=== PATIENT | male | born 1955 | race Two or more races ===

== ENCOUNTER 2025-01-30 16:29 | Outpatient (REF) | payer OTHER, MEDICARE, SELFPAY ==
--- OUTSIDE RECORDS SUMMARY | 2025-01-30 18:21 | XMS_ITS | Clinical Summary ---
Author Organization [address] Building Address [address] [place] [address] Phone Care Team Providers Care Hydro Mechanic Name Role Phone Chilo Sanchez MD Primary Care Provider [phone] Allergies No known active allergies Medications aspirin 81 mg EC tablet Take 81 mg by mouth daily. Active clotrimazole-b etamethasone (LOTRISONE) 1-0.05 % cream Apply to affected area twice a day 3 Active Farxiga 10 mg tablet Take 10 mg by mouth daily 4 Active FREESTYLE LANCETS MISC 1 Device by Does not apply route every morning (before breakfast). 3 Active blood-glucose meter kit 1 Each by Does not apply route as needed for Other. 4 Active blood sugar diagnostic (FreeStyle Lite Strips) test strip USE TO TEST BLOOD SUGAR EVERY MORNING BEFORE BREAKFAST. Dx Code E11.22 3 Active cabergoline (DOSTINEX) 0.5 mg tabletIndicati ons:Type 2 diabetes mellitus with diabetic chronic kidney disease (CMS/HCC V24, CMS/HCC V28) TAKE 1/2 OF A TABLET BY MOUTH TWICE A WEEK 12 tablet 1 5 Active metFORMIN XR (GLUCOPHAGE-XR ) 500 mg 24 hr tabletIndicati ons:Type 2 diabetes mellitus with diabetic chronic kidney disease ([facility] V24, [facility] V28) TAKE 1 TABLET BY MOUTH TWICE A DAY WITH FOOD 180 tablet 5 Active atorvastatin (LIPITOR) 20 mg tablet TAKE 1 TABLET BY MOUTH EVERY DAY 90 tablet 5 Active lisinopriL (PRINIVIL,ZEST RIL) 10 mg tablet TAKE 1 TABLET BY MOUTH EVERY DAY 90 tablet 5 Active lisinopriL (PRINIVIL,ZEST RIL) 10 mg tablet TAKE 1 TABLET BY MOUTH EVERY DAY 90 tablet 5 025 Discontinued atorvastatin (LIPITOR) 20 mg tablet TAKE 1 TABLET BY MOUTH EVERY DAY 90 tablet 5 025 Discontinued Active Problems Problem Noted Date Diagnosed Date Morbid obesity with BMI of 4 0.0-44.9, adult ([facility] V24, [facility] V28) 07/25/2024 Malignant neoplasm of right kidney ([facility] V24, [facility] V28) 12/29/2022 Lumbar disc disease 05/25/2022 Overview (07/25/2024): Last Assessment & Plan: Patient is 3 weeks s/p right L4-5 decompression and foraminal discectomy. He states his right leg pain is much improved, he has mild residual tingling a few times a day in the right foot, or when lying down sleeping. He states he can lay on his left or right side but not on his belly because is too uncomfortable with the tingling. He notes that he is walking and sleeping better. He denies any wound drainage, fever, sweats chills. He is not requiring any pain meds, including [id number] NSAIDs or Tylenol. Patient is doing well postop, likely will continue to note improvements with time. I asked him to follow-up in 6 weeks if he has any residual symptoms at that time. All postop questions answered. I had reviewed his preop lumbar MRI report, there was mention of incidentally noted 4.9 cm soft tissue lesion arising from the lateral aspect of the right kidney, only seen on localizer sequence. They stated its not representing a simple cyst, recommended CT of the abdomen and pelvis for further evaluation. I let patient know of this finding, will order the CAT scan, but advised them to see the primary care for follow-up of this CT scan results. They will call the PCP this week, I gave him copies of his office note, MRI report, op note to drop off at the PCP office. They will call with any concerns or questions. Gastroesophageal reflux disease 06/03/2021 Monoclonal gammopathy 12/14/2019 Overview (07/25/2024): Referred to Heme 12/05 & / Proteinuria 05/21/2019 Venous insufficiency of both lower extremities 1 11/29/2017 Primary insomnia 04/25/2018 Overview (07/25/2024): 08/2018 Home Sleep Study did not reveal sleep apnea. Microprolactinoma ([facility] V24, [facility] V28) Tubular adenoma of colon 05/10/2014 Overview (07/25/2024): Western mass gastro 01/2014 Type 2 diabetes mellitus wit h renal manifestations ([facility] V24, [facility] V28) 12/13/2012 Fatty liver disease, nonalcoholic 12/04/2012 Overview (07/25/2024): Questionable finding on abdominal ultrasound 07/2012. Normal LFTs Prolactin increased 09/25/2010 HTN (hypertension) 09/24/2010 Hyperlipidemia 09/24/2010 Encounters Date Type Department Care Team Description 01/11/2025 Telephone Internal Medicine - [facility] [address] [place] [address] Joanna Colon, RN Medicare Annual Wellness Visit Subsequent 11/28/2024 5:15 PM EST Office Visit [facility] - [place] [address] [place] [address] Marium Worthington NP Excessive cerumen in left ear canal (Primary Dx) 11/15/2024 2:00 PM EST Consult [facility] for [facility] - [place] [address] [place] [address] Adilene Pool MD Cognitive change (Primary Dx); Tremor; Atrophy of cerebral cortex (CMS/HCC V24) from Last 3 Months Immunizations Name Administration Dates Next Due Influenza trivalent, 0.5mL ( Fluzone High-dose) 65yo and older 08/25/2022,08/09/2019,08/09/2018 Influenza trivalent, with pr eservative (Fluzone; Afluria) 6mo and older 08/08/2020 Dianxin SARS-CoV-2 COVID-19, mRNA, LNP-S, preservative free 10/18/2022,02/09/2021,01/19/2021 Pneumococcal polysaccharide 23 valent (Pneumovax 23) 2yo and older 08/09/2018 Tdap Tetanus diptheria acell ular pertussis (Boostrix; Adacel) 7yo and older 02/06/2013 Surgical History Surgery Date Site/Laterality Comments COLONOSCOPY 01/15/2009 PROCEDURE: COLOREC CANC SCRN,COLONOSCPY HI RISK; COMMENT: Dr Hardin for hx of polyps. Neg in 09, rpt in 5 yrs OTHER SURGICAL HISTORY 06/09/2022 PROCEDURE: AR HERNANDEZ FACETECTOMY & FORAMOTOMY 1 VRT SGM LUMBAR; COMMENT: Right L4-5 decompression and foraminal discectomy, Dr. Leon NEPHRECTOMY 12/16/2022 Right PROCEDURE: HISTORICAL NEPHRECTOMY; COMMENT: Dr. Oliveros Medical History Medical History Date Comments Tubular adenoma of colon 05/10/2014 DX:Tubu lar adenoma of colon; COMMENT: Western mass gastro 01/2014 Prolactin increased 09/25/2010 DX:Prolactin increased Primary insomnia 04/25/2018 DX:Primary inso mnia; COMMENT: 08/2018 Home Sleep Study did not reveal sleep apnea. Proteinuria 05/21/2019 DX:Proteinuria Type 2 diabetes mellitus wit h renal manifestations (CMS/HCC V24, CMS/HCC V28) 12/13/2012 DX: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) Venous insufficiency of both lower extremities 09/28/2018 DX:Venous insufficiency of b oth lower extremities Fatty liver disease, nonalcoholic 12/04/2012 DX:Fatty liver disease, nonalcoholic; COMMENT: Questionable finding on abdominal ultrasound 07/2012. Normal LFTs HTN (hypertension) 09/24/2010 DX:HTN (hyper tension) Hyperlipidemia 09/24/2010 DX:Hyperlipidemi a Microprolactinoma (CMS/HCC V 24, [facility] V28) 12/14/2017 DX:Microprolactinoma (HCC) Morbid obesity with BMI of 4 0.0-44.9, adult ([facility] V24, [facility] V28) 05/21/2019 DX:Morbid obesity wit h BMI of 40.0-44.9, adult ([facility]) Monoclonal gammopathy 12/14/2019 DX:Monoclo nal gammopathy Gastroesophageal reflux disease 06/03/2021 DX:Gastroesophageal reflux disease Family History Medical History Relation Name Comments Diabetes Brother Cataracts Father No Known Problems Mother No Known Problems Son x2 Blindness Neg Hx Glaucoma Neg Hx Macular degeneration Neg Hx Strabismus Neg Hx Relation Name Status Comments Brother Alive Father Alive Mother Son x2 Alive Social History Tobacco Use Types Packs/Day Years Used Date Smoking Tobacco: Never Smokeless Tobacco: Never Tobacco Cessation:Counseling Given: Not Answered Alcohol Use Standard Drinks/Week Comments No 0 (1 standard drink = 0.6 oz pur e alcohol) Sex and Gender Information Value Date Recorded Sex Assigned at Not on file Legal Sex Male 8:21 AM EST Gender Identity Not on file Sexual Orientation Not on file Obstetrics History Last Filed Vital Signs Vital Sign Reading Time Taken Comments Blood Pressure 123/71 11/28/2024 5:31 PM EST Pulse 59 11/28/2024 5:31 PM EST Temperature 36.7 ??C (98 ??F) 11/28/2024 5:31 PM EST Respiratory Rate - - Oxygen Saturation 98% 11/28/2024 5:31 PM EST Inhaled Oxygen Concentration - - Weight 103 kg (227 lb) 11/15/2024 2:08 PM EST Height 167.6 cm (5' 6 ) 11/15/2024 2:08 PM EST Body Mass Index 36.64 11/15/2024 2:08 PM EST Plan of Treatment Upcoming Encounters Date Type Department Care Team (Late st Contact Info) Description 02/27/2025 1:15 PM EDT Office Visit Internal Medicine - [address] [phone] Chilo Sanchez MD [address] [place] [id number] 04/29/2025 10:00 AM EDT Office Visit [facility] [address] [facility] [address] [place] [address] Adilene Pool MD [address] [place] [address] Health Maintenance Due Date Last Done Comments Diabetes: Annual Foot Exam 1965 Diabetes: Annual Retina Eye Exam 1965 Hepatitis A Vaccines (1 of 2 - Risk 2-dose series) 1972 Zoster Vaccines (1 of 2) 1972 Hepatitis B Vaccines (1 of 3 - Risk 3-dose series) 2013 RSV Immunization Adult Patients (1 - Risk 60-74 years 1-dose series) 2013 Pneumococcal Vaccine: 50+ Years (2 of 2 - PCV) 08/09/2019 08/09/2018 Depression Screening 09/19/2022 Falls Risk Assessment 09/19/2022 Social Influencers of Health Screening 09/19/2022 DTaP,Tdap,and Td Vaccines (2 - Td or Tdap) 02/06/2023 02/06/2013 Diabetes: Blood Sugar Control Test (HGBA1C) 03/22/2024 09/21/2023 COVID-19 Vaccine ( season) 2024 10/18/2022, 02/17/2022, 08/13/2021, Additional history exists Medicare Annual Wellness Visit 07/22/2024 07/22/2023 Influenza Vaccine (Season Ended) 2025 08/25/2022, 12/01/2021, 08/08/2020, Additional history exists Diabetes: Annual Urine Albumin-Creatinine Ratio (uACR) 01/10/2026 01/10/2025, 01/10/2025, 09/21/2023 Diabetes: Annual GFR (Glomerular Filtration Rate) 01/10/2026 01/10/2025, 11/15/2024, 09/05/2024, Additional history exists Hypertension/CHF/CAD Annual BMP Blood Test 01/10/2026 01/10/2025, 11/15/2024, 09/05/2024, Additional history exists Colorectal Cancer Screening: Colonoscopy 01/06/2027 01/06/2022 Cholesterol Screening (Lipid Panel) 09/05/2029 09/05/2024, 10/20/2023 Hepatitis C Screening Completed 02/06/2013 HIB Vaccines Aged Out No longer eligi ble based on patient's age to complete this topic HPV Vaccines Aged Out No longer eligi ble based on patient's age to complete this topic IPV Vaccines Aged Out No longer eligi ble based on patient's age to complete this topic MMR Vaccines Aged Out No longer eligi ble based on patient's age to complete this topic Meningococcal ACWY Vaccine Aged Out N o longer eligible based on patient's age to complete this topic Meningococcal B Vaccine Aged Out No l onger eligible based on patient's age to complete this topic RSV Immunization Patients Under 20 months Aged Out No longer eligible based on patient's age to complete this topic Varicella Vaccines Aged Out No longer eligible based on patient's age to complete this topic Procedures Procedure Name Priority Date/Time Associated Diagnosis Comments GOLDEN URINE CULTURE TUBE Routine 01/10/2025 9:10 AM EDT Chronic kidney disease (CKD) stage G3b/A1, moderately decreased glomerular filtration rate (GFR) between 30-44 mL/min/1.73 square meter and albuminuria creatinine ratio les* (CMS/HCC V24, CMS/HCC V28) Persistent proteinuria Hypertension, unspecified type Fatty liver disease, nonalcoholic Hyperlipidemia, unspecified hyperlipidemia type Vitamin D deficiency Gastroesophageal reflux disease, unspecified whether esophagitis present Malignant neoplasm of right kidney (CMS/HCC V24, CMS/HCC V28) Proteinuria, unspecified type URINALYSIS WITH REFLEX MICROSCOPIC AND CULTURE Routine 01/10/2025 9:10 AM EDT Chronic kidney disease (CKD) stage G3b/A1, moderately decreased glomerular filtration rate (GFR) between 30-44 mL/min/1.73 square meter and albuminuria creatinine ratio les* (CMS/HCC V24, CMS/HCC V28) Persistent proteinuria Hypertension, unspecified type Fatty liver disease, nonalcoholic Hyperlipidemia, unspecified hyperlipidemia type Vitamin D deficiency Gastroesophageal reflux disease, unspecified whether esophagitis present Malignant neoplasm of right kidney (CMS/HCC V24, CMS/HCC V28) Proteinuria, unspecified type URINALYSIS WITH REFLEX MICROSCOPIC AND CULTURE Routine 01/10/2025 9:10 AM EDT Chronic kidney disease (CKD) stage G3b/A1, moderately decreased glomerular filtration rate (GFR) between 30-44 mL/min/1.73 square meter and albuminuria creatinine ratio les* (CMS/HCC V24, CMS/HCC V28) Persistent proteinuria Hypertension, unspecified type Fatty liver disease, nonalcoholic Hyperlipidemia, unspecified hyperlipidemia type Vitamin D deficiency Gastroesophageal reflux disease, unspecified whether esophagitis present Malignant neoplasm of right kidney (CMS/HCC V24, CMS/HCC V28) Proteinuria, unspecified type MICROALBUMIN CREATININE URINE RATIO Routine 01/10/2025 9:10 AM EDT Chronic kidney disease (CKD) stage G3b/A1, moderately decreased glomerular filtration rate (GFR) between 30-44 mL/min/1.73 square meter and albuminuria creatinine ratio les* ([facility]/HCC V24, CMS/HCC V28) Persistent proteinuria Hypertension, unspecified type Fatty liver disease, nonalcoholic Hyperlipidemia, unspecified hyperlipidemia type Vitamin D deficiency Gastroesophageal reflux disease, unspecified whether esophagitis present Malignant neoplasm of right kidney (CMS/HCC V24, CMS/HCC V28) Proteinuria, unspecified type PROTEIN AND CREATININE WITH RATIO, URINE Routine 01/10/2025 9:10 AM EDT Chronic kidney disease (CKD) stage G3b/A1, moderately decreased glomerular filtration rate (GFR) between 30-44 mL/min/1.73 square meter and albuminuria creatinine ratio les* ([facility]/HCC V24, CMS/HCC V28) Persistent proteinuria Hypertension, unspecified type Fatty liver disease, nonalcoholic Hyperlipidemia, unspecified hyperlipidemia type Vitamin D deficiency Gastroesophageal reflux disease, unspecified whether esophagitis present Malignant neoplasm of right kidney (CMS/HCC V24, CMS/HCC V28) Proteinuria, unspecified type PARATHYROID HORMONE INTACT Routine 01/10/2025 8:56 AM EDT Chronic kidney disease (CKD) stage G3b/A1, moderately decreased glomerular filtration rate (GFR) between 30-44 mL/min/1.73 square meter and albuminuria creatinine ratio les* ([facility]/HCC V24, CMS/HCC V28) Persistent proteinuria Hypertension, unspecified type Fatty liver disease, nonalcoholic Hyperlipidemia, unspecified hyperlipidemia type Vitamin D deficiency Gastroesophageal reflux disease, unspecified whether esophagitis present Malignant neoplasm of right kidney (CMS/HCC V24, CMS/HCC V28) Proteinuria, unspecified type RENAL FUNCTION PANEL Routine 01/10/2025 8:56 AM EDT Chronic kidney disease (CKD) stage G3b/A1, moderately decreased glomerular filtration rate (GFR) between 30-44 mL/min/1.73 square meter and albuminuria creatinine ratio les* (CMS/HCC V24, CMS/HCC V28) Persistent proteinuria Hypertension, unspecified type Fatty liver disease, nonalcoholic Hyperlipidemia, unspecified hyperlipidemia type Vitamin D deficiency Gastroesophageal reflux disease, unspecified whether esophagitis present Malignant neoplasm of right kidney (CMS/HCC V24, CMS/HCC V28) Proteinuria, unspecified type VITAMIN D 25 HYDROXY Routine 01/10/2025 8:56 AM EDT Chronic kidney disease (CKD) stage G3b/A1, moderately decreased glomerular filtration rate (GFR) between 30-44 mL/min/1.73 square meter and albuminuria creatinine ratio les* (CMS/HCC V24, CMS/HCC V28) Persistent proteinuria Hypertension, unspecified type Fatty liver disease, nonalcoholic Hyperlipidemia, unspecified hyperlipidemia type Vitamin D deficiency Gastroesophageal reflux disease, unspecified whether esophagitis present Malignant neoplasm of right kidney (CMS/HCC V24, CMS/HCC V28) Proteinuria, unspecified type COMPLETE BLOOD COUNT Routine 01/10/2025 8:56 AM EDT Chronic kidney disease (CKD) stage G3b/A1, moderately decreased glomerular filtration rate (GFR) between 30-44 mL/min/1.73 square meter and albuminuria creatinine ratio les* (CMS/HCC V24, CMS/HCC V28) Persistent proteinuria Hypertension, unspecified type Fatty liver disease, nonalcoholic Hyperlipidemia, unspecified hyperlipidemia type Vitamin D deficiency Gastroesophageal reflux disease, unspecified whether esophagitis present Malignant neoplasm of right kidney (CMS/HCC V24, CMS/HCC V28) Proteinuria, unspecified type MAGNESIUM Routine 01/10/2025 8:56 AM EDT Chronic kidney disease (CKD) stage G3b/A1, moderately decreased glomerular filtration rate (GFR) between 30-44 mL/min/1.73 square meter and albuminuria creatinine ratio les* (CMS/HCC V24, CMS/HCC V28) Persistent proteinuria Hypertension, unspecified type Fatty liver disease, nonalcoholic Hyperlipidemia, unspecified hyperlipidemia type Vitamin D deficiency Gastroesophageal reflux disease, unspecified whether esophagitis present Malignant neoplasm of right kidney (CMS/HCC V24, CMS/HCC V28) Proteinuria, unspecified type CBC WITH AUTO DIFFERENTIAL Routine 11/15/2024 3:26 PM EST Cognitive change Tremor Atrophy of cerebral cortex (CMS/HCC V24) CREATININE, SERUM Routine 11/15/2024 3:2 6 PM EST Cognitive change Tremor Atrophy of cerebral cortex (CMS/HCC V24) BUN Routine 11/15/2024 3:26 PM EST Cognitive change Tremor Atrophy of cerebral cortex (CMS/HCC V24) HEPATIC FUNCTION PANEL Routine 11/15/2024 3:26 PM EST Cognitive change Tremor Atrophy of cerebral cortex (CMS/HCC V24) TREPONEMA PALLIDUM ANTIBODY WITH REFLEX TO RPR AND PARTICLE AGGLUTINATION Routine 11/15/2024 3:26 PM EST Cognitive change Tremor Atrophy of cerebral cortex (CMS/HCC V24) THYROID STIMULATING HORMONE WITH REFLEX TO FREE T4 AND FREE T3 Routine 11/15/2024 3:26 PM EST Cognitive change Tremor Atrophy of cerebral cortex (CMS/HCC V24) VITAMIN B12 Routine 11/15/2024 3:26 PM EST Cognitive change Tremor Atrophy of cerebral cortex (CMS/HCC V24) CBC AND DIFFERENTIAL Routine 11/15/2024 3:26 PM EST Cognitive change Tremor Atrophy of cerebral cortex (CMS/HCC V24) EXTERNAL CT REPORT 11/14/2024 LIPID PANEL WITH REFLEX TO DIRECT LDL Routine 09/05/2024 8:40 AM EST Primary hypertension HEMOGLOBIN A1C Routine 09/21/2023 HM COLONOSCOPY Routine 01/06/2022 HEPATITIS C SCREENING Routine 02/06/2013 from Last 3 Months or Most Recently Relevant to Health Maintenance Results * (ABNORMAL) Urinalysis with reflex microscopic and culture (01/10/2025 9:10 AM EDT) Specific [place] Urine 1.021 1.003 - 1.030 LAB URINALYSIS - AUTOMATED METHOD 01/10/2025 12:[address] [facility] pH, Urine 5.5 5.0 - 8.0 pH LAB URINALYSIS - AUTOMATED METHOD 01/10/2025 12:[address] [facility] Leukocytes, Urine Negative Negative LAB URINALYSIS - AUTOMATED METHOD 01/10/2025 12:[address] [facility] Nitrite, Urine Negative Negative LAB URINALYSIS - AUTOMATED METHOD 01/10/2025 12:[address] [facility] Protein, Urine 30(A) <=Trace mg/dL LAB URINALYSIS - AUTOMATED METHOD 01/10/2025 12:[address] [facility] Glucose, Urine >=1000(A) Negative mg/dL LAB URINALYSIS - AUTOMATED METHOD 01/10/2025 12:[address] [facility] Ketones, Urine Negative Negative mg/dL LAB URINALYSIS - AUTOMATED METHOD 01/10/2025 12:[address] [facility] Urobilinogen , Urine 0.2 0.2 - 1.0 mg/dL LAB URINALYSIS - AUTOMATED METHOD 01/10/2025 12:[address] [facility] Bilirubin, Urine Negative Negative LAB URINALYSIS - AUTOMATED METHOD 01/10/2025 12:[address] [facility] Blood, Urine Negative Negative LAB URINALYSIS - AUTOMATED METHOD 01/10/2025 12:[address] [facility] RBC, Urine 0.5 0 - 4 /HPF LAB URINALYSIS - AUTOMATED METHOD 01/10/2025 12:40 PM EDT [facility] WBC, Urine 0.4 0 - 4 /HPF LAB URINALYSIS - AUTOMATED METHOD 01/10/2025 12:40 PM EDT [facility] Squamous Epithelial, Urine 4 0 - 60 /LPF LAB URINALYSIS - AUTOMATED METHOD 01/10/2025 12:40 PM EDT [facility] Bacteria, Urine Negative Negative /HPF LAB URINALYSIS - AUTOMATED METHOD 01/10/2025 12:40 PM EDT [facility] Hyaline Casts, Urine 0.0 0 - 3 /LPF LAB URINALYSIS - AUTOMATED METHOD 01/10/2025 12:40 PM EDT [facility] Urine Urine specimen obtained by clean catch procedure / Unknown Non-blood Collection / Unknown 01/10/2025 9:10 AM EDT 01/10/2025 9:10 AM EDT us Enrike Lund MD LAB URINE ORDERABLES Final Re sult Performing Organization Address City/[facility]/ZIP Co de Phone Number [facility] [address] [place] [address], [place] [phone] * Golden urine culture tube (01/10/2025 9:10 AM EDT) Extra Tube Hold for add-ons. 01/10/2025 12:01 PM EDT [facility] Comment:Auto resulted. Urine Urine specimen obtained by clean catch procedure / Unknown Non-blood Collection / Unknown 01/10/2025 9:10 AM EDT 01/10/2025 9:10 AM EDT us Enrike Lund MD LAB URINE ORDERABLES Final Re sult [facility] [address] [place] [address], [place] [phone] * (ABNORMAL) Protein and creatinine with ratio, urine (01/10/2025 9:10 AM EDT) Protein, Urine 41 mg/dL LAB CHEMISTRY METHOD 01/10/2025 2:56 PM EDT [facility] Prot/Creat, Ur 0.45(H) <=0.20 mg/mg creat LAB CHEMISTRY METHOD 01/10/2025 2:56 PM EDT [facility] Creatinine, Urine 91.0 mg/dL LAB CHEMISTRY METHOD 01/10/2025 2:56 PM EDT [facility] Urine Urine specimen obtained by clean catch procedure / Unknown Non-blood Collection / Unknown 01/10/2025 9:10 AM EDT 01/10/2025 9:10 AM EDT Enrike Lund MD LAB URINE ORDERABLES Final Re sult [facility] [address] [place] [address], * (ABNORMAL) Microalbumin creatinine urine ratio (01/10/2025 9:10 AM EDT) Creatinine, Urine 91.0 mg/dL LAB CHEMISTRY METHOD 01/10/2025 3:08 PM EDT [facility] Microalb, Ur 206.0(H) 0.0 - 29.0 mg/L LAB CHEMISTRY METHOD 01/10/2025 3:08 PM EDT [facility] Microalb/Crea t Ratio 226(H) <30 mg/g creat LAB CHEMISTRY METHOD 01/10/2025 3:08 PM EDT [facility] Urine Urine specimen obtained by clean catch procedure / Unknown Non-blood Collection / Unknown 01/10/2025 9:10 AM EDT 01/10/2025 9:10 AM EDT us Enrike Lund MD LAB URINE ORDERABLES Final Re sult Performing Organization Address City/[facility]/ZIP Co de Phone Number [facility] [address] [place] [address], [place] [phone] * (ABNORMAL) Vitamin D 25 hydroxy (01/10/2025 8:56 AM EDT) [facility] Vit D, 25-Hydroxy 26.8(L) 30.0 - 80.0 ng/mL LAB CHEMISTRY METHOD 01/10/2025 2:17 PM EDT [facility] Blood Venous blood specimen / Unknown Venipuncture / Unknown 01/10/2025 8:56 AM EDT 01/10/2025 9:05 AM EDT us Enrike Lund MD LAB BLOOD ORDERABLES Final Re sult Performing Organization Address City/[facility]/ZIP Co de Phone Number [facility] [address] [place] [address], [place] [phone] * Complete blood count (01/10/2025 8:56 AM EDT) [facility] WBC 6.0 4.8 - 10.8 K/mcL LAB HEMETOLOGY METHOD 01/10/2025 12:33 PM EDT [facility] RBC 5.40 4.50 - 5.50 M/mcL LAB HEMETOLOGY METHOD 01/10/2025 12:33 PM EDT [facility] Hemoglobin 15.4 13.5 - 17.5 g/dL LAB HEMETOLOGY METHOD 01/10/2025 12:33 PM EDT [facility] Hematocrit 47.3 42.0 - 54.0 % LAB HEMETOLOGY METHOD 01/10/2025 12:33 PM EDT [facility] MCV 87.6 79.0 - 98.0 FL LAB HEMETOLOGY METHOD 01/10/2025 12:33 PM EDT [facility] MCH 28.5 27.0 - 32.0 pcg LAB HEMETOLOGY METHOD 01/10/2025 12:33 PM EDT [facility] [facility] MCHC 32.6 32.0 - 37.0 g/dL LAB HEMETOLOGY METHOD 01/10/2025 12:33 PM EDT [facility] RDW 13.2 11.0 - 15.0 % LAB HEMETOLOGY METHOD 01/10/2025 12:33 PM EDT [facility] Platelets 207 130 - 400 K/mcL LAB HEMETOLOGY METHOD 01/10/2025 12:33 PM EDT [facility] MPV 9.6 7.0 - 11.0 FL LAB HEMETOLOGY METHOD 01/10/2025 12:33 PM EDT [facility] NRBC 0.0 <1.0 % LAB HEMETOLOGY METHOD 01/10/2025 12:33 PM EDT [facility] NRBC Absolute 0.00 <0.10 K/mcL LAB HEMETOLOGY METHOD 01/10/2025 12:33 PM EDT [facility] Blood Venous blood specimen / Unknown Venipuncture / Unknown 01/10/2025 8:56 AM EDT 01/10/2025 9:05 AM EDT us Enrike Lund MD LAB BLOOD ORDERABLES Final Re sult [facility] [address] [place] [address], * Parathyroid hormone intact (01/10/2025 8:56 AM EDT) PTH 63.5 18.5 - 88.0 pcg/mL LAB CHEMISTRY METHOD 01/10/2025 2:18 PM EDT [facility] Blood Venous blood specimen / Unknown Venipuncture / Unknown 01/10/2025 8:56 AM EDT 01/10/2025 9:05 AM EDT Enrike Lund MD LAB BLOOD ORDERABLES Final Re sult Performing Organization Address [facility]/ZIP Co de Phone Number [facility] [address] [place] [address], [place] [phone] * Magnesium (01/10/2025 8:56 AM EDT) [facility] Magnesium 2.0 1.9 - 2.6 mg/dL LAB CHEMISTRY METHOD 01/10/2025 1:13 PM EDT [facility] Blood Venous blood specimen / Unknown Venipuncture / Unknown 01/10/2025 8:56 AM EDT 01/10/2025 9:05 AM EDT Enrike Lund MD LAB BLOOD ORDERABLES Final Re sult Performing Organization Address City/[facility]/ZIP Co de Phone Number [facility] [address] [place] [address], [place] [phone] * (ABNORMAL) Renal function panel (01/10/2025 8:56 AM EDT) [facility] Sodium 139 133 - 145 mmol/L LAB CHEMISTRY METHOD 01/10/2025 1:13 PM EDT [facility] Potassium 4.4 3.5 - 5.5 mmol/L LAB CHEMISTRY METHOD 01/10/2025 1:13 PM EDT [facility] Chloride 106 96 - 110 mmol/L LAB CHEMISTRY METHOD 01/10/2025 1:13 PM EDT [facility] CO2 27 21 - 32 mmol/L LAB CHEMISTRY METHOD 01/10/2025 1:13 PM EDT [facility] Anion Gap 6 3 - 11 LAB CHEMISTRY METHOD 01/10/2025 1:13 PM EDT [facility] Glucose 121(H) 70 - 100 mg/dL LAB CHEMISTRY METHOD 01/10/2025 1:13 PM EDT [facility] BUN 24 5 - 25 mg/dL LAB CHEMISTRY METHOD 01/10/2025 1:13 PM EDT [facility] Creatinine 1.68(H) 0.70 - 1.30 mg/dL LAB CHEMISTRY METHOD 01/10/2025 1:13 PM EDT [facility] eGFR 43(L) >=60 mL/min/1. 73m2 LAB CHEMISTRY METHOD 01/10/2025 1:13 PM EDT [facility] Comment:Calculation based on the??Chronic Kidney Disease Epidemiology Collaboration (CKD-EPI) equation refit??without adjustment for race. BUN/Creatinine Ratio 14.3 LAB CHEMISTRY METHOD 01/10/2025 1:13 PM EDT [facility] Albumin 3.9 3.2 - 5.0 g/dL LAB CHEMISTRY METHOD 01/10/2025 1:13 PM EDT [facility] Calcium 9.1 8.5 - 10.5 mg/dL LAB CHEMISTRY METHOD 01/10/2025 1:[address] [facility] Phosphorus 3.0 2.5 - 4.5 mg/dL LAB CHEMISTRY METHOD 01/10/2025 1:[address] [facility] Blood Venous blood specimen / Unknown Venipuncture / Unknown 01/10/2025 8:56 AM EDT 01/10/2025 9:05 AM EDT us Enrike Lund MD LAB BLOOD ORDERABLES Final Re sult [facility] [address] [place] [address], * Treponema pallidum antibody with reflex to RPR and particle agglutination (11/15/2024 3:26 PM EST) T. Pallidum Antibodies Negative Negative LAB CHEMISTRY METHOD 11/15/2024 7:03 PM EST [facility] Blood Venous blood specimen / Unknown Venipuncture / Unknown 11/15/2024 3:26 PM EST 11/15/2024 3:26 PM EST us Adilene Pool MD LAB BLOOD ORDERABLES Fin al Result Performing Organization Address [facility]/ZIP Co de Phone Number [facility] [address] [place] [address], [place] [phone] * Thyroid stimulating hormone with reflex to free t4 and free t3 (11/15/2024 3:26 PM EST) [facility] TSH 1.43 0.40 - 4.00 mcIU/mL LAB CHEMISTRY METHOD 11/15/2024 6:52 PM EST [facility] Blood Venous blood specimen / Unknown Venipuncture / Unknown 11/15/2024 3:26 PM EST 11/15/2024 3:26 PM EST us Adilene Pool MD LAB BLOOD ORDERABLES Fin al Result Performing Organization Address [facility] Co de Phone Number [facility] [address] [place] [address], [place] [phone] * CBC auto differential (11/15/2024 3:26 PM EST) [facility] WBC 6.5 4.8 - 10.8 K/mcL LAB HEMETOLOGY METHOD 11/15/2024 6:25 PM EST [facility] RBC 5.40 4.50 - 5.50 M/mcL LAB HEMETOLOGY METHOD 11/15/2024 6:25 PM [facility] Hemoglobin 15.2 13.5 - 17.5 g/dL LAB HEMETOLOGY METHOD 11/15/2024 6:25 PM EST [facility] Hematocrit 46.9 42.0 - 54.0 % LAB HEMETOLOGY METHOD 11/15/2024 6:25 PM [facility] MCV 87.0 79.0 - 98.0 FL LAB HEMETOLOGY METHOD 11/15/2024 6:25 PM [facility] MCH 28.2 27.0 - 32.0 pcg LAB HEMETOLOGY METHOD 11/15/2024 6:25 PM [facility] MCHC 32.4 32.0 - 37.0 g/dL LAB HEMETOLOGY METHOD 11/15/2024 6:25 PM [facility] RDW 13.2 11.0 - 15.0 % LAB HEMETOLOGY METHOD 11/15/2024 6:25 PM [facility] Platelets 270 130 - 400 K/mcL LAB HEMETOLOGY METHOD 11/15/2024 6:25 PM [facility] MPV 9.2 7.0 - 11.0 FL LAB HEMETOLOGY METHOD 11/15/2024 6:25 PM [facility] NRBC 0.0 <1.0 % LAB HEMETOLOGY METHOD 11/15/2024 6:25 PM [facility] NRBC Absolute 0.00 <0.10 K/mcL LAB HEMETOLOGY METHOD 11/15/2024 6:25 PM [facility] Neutrophils Relative 59.3 % LAB HEMETOLOGY METHOD 11/15/2024 6:25 PM [facility] Lymphocytes Relative 26.3 % LAB HEMETOLOGY METHOD 11/15/2024 6:25 PM [facility] Monocytes Relative 10.5 % LAB HEMETOLOGY METHOD 11/15/2024 6:25 PM [facility] Eosinophils Relative 2.6 % LAB HEMETOLOGY METHOD 11/15/2024 6:25 PM [facility] Basophils Relative 0.8 % LAB HEMETOLOGY METHOD 11/15/2024 6:25 PM EST [facility] Immature Granulocytes Relative 0.5 % LAB HEMETOLOGY METHOD 11/15/2024 6:25 PM EST [facility] Neutrophils Absolute 3.84 1.50 - 7.00 K/mcL LAB HEMETOLOGY METHOD 11/15/2024 6:25 PM EST [facility] Lymphocytes Absolute 1.70 1.00 - 5.00 K/mcL LAB HEMETOLOGY METHOD 11/15/2024 6:25 PM EST [facility] Monocytes Absolute 0.68 0.20 - 1.00 K/mcL LAB HEMETOLOGY METHOD 11/15/2024 6:25 PM EST [facility] Eosinophils Absolute 0.17 0.00 - 0.50 K/mcL LAB HEMETOLOGY METHOD 11/15/2024 6:25 PM EST [facility] Basophils Absolute 0.05 0.00 - 0.20 K/mcL LAB HEMETOLOGY METHOD 11/15/2024 6:25 PM EST [facility] Immature Granulocytes Absolute 0.03 0.00 - 0.03 K/mcL LAB HEMETOLOGY METHOD 11/15/2024 6:25 PM EST [facility] Blood Venous blood specimen / Unknown Venipuncture / Unknown 11/15/2024 3:26 PM EST 11/15/2024 3:26 PM EST Adilene Pool MD LAB BLOOD ORDERABLES Fin al Result [facility] [address] [place] [address], * (ABNORMAL) Creatinine (11/15/2024 3:26 PM EST) Creatinine 1.86(H) 0.70 - 1.30 mg/dL LAB CHEMISTRY METHOD 11/15/2024 6:44 PM EST [facility] eGFR 38(L) >=60 mL/min/1. 73m2 LAB CHEMISTRY METHOD 11/15/2024 6:44 PM EST [facility] Comment:Calculation based on the??Chronic Kidney Disease Epidemiology Collaboration (CKD-EPI) equation refit??without adjustment for race. Blood Venous blood specimen / Unknown Venipuncture / Unknown 11/15/2024 3:26 PM EST 11/15/2024 3:26 PM EST us Adilene Pool MD LAB BLOOD ORDERABLES Fin al Result [facility] [address] [place] [address], [place] [phone] * (ABNORMAL) BUN (11/15/2024 3:26 PM EST) BUN 32(H) 5 - 25 mg/dL LAB CHEMISTRY METHOD 11/15/2024 6:45 PM EST [facility] Blood Venous blood specimen / Unknown Venipuncture / Unknown 11/15/2024 3:26 PM EST 11/15/2024 3:26 PM EST us Adilene Pool MD LAB BLOOD ORDERABLES Fin al Result [facility] [address] [place] [address], [place] [phone] * Vitamin B12 (11/15/2024 3:26 PM EST) Vitamin B-12 283 250 - 900 pcg/mL LAB CHEMISTRY METHOD 11/15/2024 7:18 PM EST [facility] Blood Venous blood specimen / Unknown Venipuncture / Unknown 11/15/2024 3:26 PM EST 11/15/2024 3:26 PM EST us Adilene Pool MD LAB BLOOD ORDERABLES Fin al Result [facility] [address] [place] [address], [place] [phone] * (ABNORMAL) Hepatic function panel (11/15/2024 3:26 PM EST) Total Protein 7.0 6.0 - 8.0 g/dL LAB CHEMISTRY METHOD 11/15/2024 7:18 PM EST [facility] Albumin 3.9 3.2 - 5.0 g/dL LAB CHEMISTRY METHOD 11/15/2024 7:18 PM EST [facility] Total Bilirubin 0.5 0.0 - 1.4 mg/dL LAB CHEMISTRY METHOD 11/15/2024 7:18 PM [facility] Bilirubin, Direct 0.1 0.0 - 0.3 mg/dL LAB CHEMISTRY METHOD 11/15/2024 7:18 PM [facility] Bilirubin, Indirect 0.4 0.0 - 1.1 mg/dL LAB CHEMISTRY METHOD 11/15/2024 7:18 PM [facility] ALT (SGPT) 26 10 - 60 unit/L LAB CHEMISTRY METHOD 11/15/2024 7:18 PM [facility] AST (SGOT) 9(L) 10 - 42 unit/L LAB CHEMISTRY METHOD 11/15/2024 7:18 PM [facility] Alkaline Phosphatase 82 42 - 121 unit/L LAB CHEMISTRY METHOD 11/15/2024 7:18 PM [facility] Blood Venous blood specimen / Unknown Venipuncture / Unknown 11/15/2024 3:26 PM EST 11/15/2024 3:26 PM EST Adilene Pool MD LAB BLOOD ORDERABLES Fin al Result [facility] [address] [place] [address], [place] [phone] * External CT Report (11/14/2024) Anatomical Region Laterality Modality Computed Tomogra phy us Provider [facility] CT PROCEDURES Final Result * Lipid panel with reflex to direct LDL (09/05/2024 8:40 AM EST) Cholesterol 141 0 - 200 mg/dL LAB CHEMISTRY METHOD 09/05/2024 12:41 PM EST [facility] Triglycerides 132 0 - 150 mg/dL LAB CHEMISTRY METHOD 09/05/2024 12:41 PM EST [facility] HDL 43 >=40 mg/dL LAB CHEMISTRY METHOD 09/05/2024 12:41 PM EST [facility] LDL Calculated 72 0 - 100 mg/dL LAB CHEMISTRY METHOD 09/05/2024 12:41 PM EST [facility] VLDL Cholesterol Marck 26.4 mg/dL LAB CHEMISTRY METHOD 09/05/2024 12:41 PM EST [facility] Non HDL Chol. (LDL+VLDL) 98 <145 mg/dL LAB CHEMISTRY METHOD 09/05/2024 12:41 PM EST [facility] Chol/HDL Ratio 3.3 0.0 - 4.4 LAB CHEMISTRY METHOD 09/05/2024 12:41 PM [facility] Blood Venous blood specimen / Unknown Venipuncture / Unknown 09/05/2024 8:40 AM EST 09/05/2024 8:40 AM EST Chilo Sanchez MD LAB BLOOD ORDERABLES Final Res ult [facility] [address] [place] [address], [place] [phone] * Hemoglobin A1c (09/21/2023) Hemoglobin A1C 6.0 <=6.5 % Blood Venous blood specimen / Unknown Historical Provider LAB BLOOD ORDERABLES Ly l Result * Colonoscopy (01/06/2022) Pathologist [facility] Colonoscopy No interpreta tion,abstr acted Anatomical Region Laterality Modality Other Historical Provider HEALTH MAINTENANCE Final Result * Hepatitis C Screening (02/06/2013) Pathologist [facility] Hepatitis C Screening Abstracted Historical Provider HEALTH MAINTENANCE Final Result from Last 3 Months or Most Recently Relevant to Health Maintenance Insurance MEDICARE [facility] Care Teams Hydro Mechanic Relationship Specialty Start Date End Date Chilo Sanchez MD [address] [place] [phone] PCP - General Internal Medicine 08/29/24
--- OUTSIDE RECORDS SUMMARY | 2025-01-30 18:22 | XMS_ITS | Encounter Summary ---
Author Organization [facility] Address [address] [place] [address] Care Team Providers Care Color Drum Worker Name Role Phone Chilo Sanchez MD Primary Care Provider [phone] Reason for Visit * Reason Onset Date Comments Medicare Annual Wellness Visit Subsequent 2024 Encounter Details Date Type Department Care Team (Late st Contact Info) Description [facility] [phone] Joanna Colon RN Medicare Annual Wellness Visit Subsequent Social History Tobacco Use Types Packs/Day Years Used Date Smoking Tobacco: Never Smokeless Tobacco: Never Alcohol Use Standard Drinks/Week Comments No 0 (1 standard drink = 0.6 oz pur e alcohol) Sex and Gender Information Value Date Recorded Sex Assigned at Not on file Legal Sex Male 8:21 AM EST Gender Identity Not on file Sexual Orientation Not on file documented as of this encounter Progress Notes * Joanna Colon RN - 01/11/2025 3:52 PM EDT LM for pt to call and schedule AWV with wellness nurse documented in this encounter Plan of Treatment Upcoming Encounters Date Type Department Care Team (Late st Contact Info) Description 02/27/2025 1:15 PM EDT Office Visit Internal Medicine - [facility] [address] [place] [address] Chilo Sanchez MD [address] [place] [phone] 04/29/2025 10:00 AM EDT Office Visit [facility] [address] [phone] Adilene Pool MD [address] [phone] documented as of this encounter Visit Diagnoses Not on filedocumented in this encounter Care Teams Color Drum Worker Relationship Specialty Start Date End Date Chilo Sanchez MD [address] [place] [phone] PCP - General Internal Medicine 08/29/24 documented as of this encounter
--- OUTSIDE RECORDS SUMMARY | 2025-01-30 18:22 | XMS_ITS | Clinical Summary ---
Author Organization [facility] Address [address] [place] [phone] Phone Care Team Providers Care Owner Name Role Phone Chilo Sanchez MD Primary Care Provider [phone] Allergies No known active allergies Medications lisinopril 10 MG tablet Take 500 mg by mouth 1 (one) time each day 3 Active atorvastatin (LIPITOR) 20 MG tablet Take 20 mg by mouth 1 (one) time each day 3 Active cabergoline (DOSTINEX) 0.5 MG tablet Take by mouth 2 (two) times a week Active aspirin (ST NEHA) 81 MG EC tablet Take 81 mg by mouth 1 (one) time each day Active metFORMIN (GLUCOPHAGE) 500 MG tablet Take 500 mg by mouth in the morning and 500 mg in the evening. Take with meals. Active Farxiga 10 MG tabletIndications:T ype 2 diabetes mellitus with renal manifestations (HCC),Stage 3b chronic kidney disease (HCC) TAKE 1 TABLET BY MOUTH EVERY MORNING 90 tablet 3 5 Active tamsulosin (FLOMAX) 0.4 MG 24 hr capsule Take 0.4 mg by mouth 1 (one) time each day Active Active Problems Problem Noted Date Diagnosed Date History of nephrectomy 03/28/2024 Obese class II 06/02/2023 06/02/2023 Stage 3b chronic kidney disease 06/02/2023 Malignant tumor of kidney 12/29/20222022 Disorder of lumbar disc 05/25/2022 06/02/20 23 Overview (06/02/2023): Last Assessment & Plan: Patient is 1 [...] is not requiring any pain meds, including [id number] NSAIDs or Tylenol. Patient is doing well [...] concerns or questions. Gastroesophageal reflux disease 06/03/2021 06/02/2023 Monoclonal gammopathy 12/14/2019 06/02/2023 Overview (06/02/2023): Referred to Heme 12/05 & 2/20 Proteinuria 05/21/2019 06/02/2023 Body mass index 40+ - severely obese 05/21/2019 06/02/2023 Primary insomnia 04/25/2018 06/02/2023 Overview (06/02/2023): 08/2018 Home Sleep Study did not reveal sleep apnea. 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 Normal LFTs Prolactin level above reference range 09/25/2010 Hypertensive disorder 09/24/2010 06/02/2023 Hyperlipidemia 09/24/2010 06/02/2023 Encounters Date Type Department Care Team Description 01/16/2025 Orders Only [facility] [address] [facility] [address] [place] [phone] Enrike Lund MD Stage 3b chronic kidney disease (HCC); Persistent proteinuria 01/10/2025 Orders Only [facility] [address] [facility] [address] [place] [phone] Enrike Lund MD 01/09/2025 2:15 PM EDT Office Visit [facility] [address] [facility] [address] [place] [phone] Enrike Lund MD Stage 3b chronic kidney disease (HCC) (Primary Dx); Persistent proteinuria 11/02/2024 Refill [facility] [address] [place] [phone] Sergio Reeves MD 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); Stage 3b chronic kidney disease (HCC) from Last 3 Months Immunizations Immunization Administration Dates Next Due Influenza Split High Dose Pr eservative Free IM 08/25/2022,08/08/2020,08/09/2019,08/09 Influenza, Unspecified 08/08/2020 Pfizer SARS-COV-2 10/18/2022,02/09/2021,01/20/20 21 Pneumococcal Polysaccharide 08/09/2018 Tdap 02/06/2013 Social History Tobacco Use Types Packs/Day Years Used Date Smoking Tobacco: Never Tobacco Cessation:Counseling Given: Not Answered Alcohol Use Standard Drinks/Week Comments Never 0 (1 standard drink = 0.6 oz pur e alcohol) Sex and Gender Information Value Date Recorded Sex Assigned at Not on file Legal Sex Male 2:40 PM EDT Gender Identity Not on file Sexual Orientation Not on file Last Filed Vital Signs Vital Sign Reading Time Taken Comments Blood Pressure 150/66 01/09/2025 3:00 PM EDT Pulse 66 01/09/2025 3:00 PM EDT Temperature - - Respiratory Rate - - Oxygen Saturation 97% 01/09/2025 3:00 PM EDT Inhaled Oxygen Concentration - - Weight 117 kg (258 lb 6.4 oz) 01/09/2025 3:00 PM EDT Height - - Body Mass Index - - Plan of Treatment Upcoming Encounters Date Type Department Care Team (Late st Contact Info) Description 04/11/2025 1:00 PM EDT Office Visit [facility] [address] [phone] Enrike Lund MD [address] [phone] Health Maintenance Due Date Last Done Comments Colorectal Cancer Screening: Annual FOBT 2002 Colorectal Cancer Screening: Colonoscopy 2002 Colorectal Cancer Screening: Sigmoidoscopy 2002 Hepatitis B Vaccine (1 of 3 - Risk 3-dose series) 2013 Pneumococcal Vaccine: 50+ Ye ars (2 of 2 - PCV) 08/09/2019 08/09/2018 Diabetes: Ophthalmology Exam 06/02/2023 12/02/2016 Diabetes: Pedal Pulse Checked 06/02/2023 Diabetes: Sensory Foot Exam 06/02/2023 Diabetes: Visual Foot Exam 06/02/2023 Diabetes: Hemoglobin A1C 12/21/2023 09/21/2023, 03/17 Influenza Vaccine (Season Ended) 2025 08/25/2022, 08/08/2020, 08/08/2020, Additional history exists Procedures Procedure Name Priority Date/Time Associated Diagnosis Comments UA W/REFLEX MICROSCOPIC & CULTURE Routine 01/10/2025 9:10 AM EDT PROTEIN / CREATININE RATIO, URINE Routine 01/10/2025 9:10 AM EDT Stage 3b chronic kidney disease (HCC) Persistent proteinuria URINE ALBUMIN / CREATININE RATIO Routine 01/10/2025 9:10 AM EDT Stage 3b chronic kidney disease (HCC) Persistent proteinuria MAGNESIUM Routine 01/10/2025 8:56 AM EDT Stage 3b chronic kidney disease (HCC) Persistent proteinuria CBC Routine 01/10/2025 8:56 AM EDT Stage 3b chronic kidney disease (HCC) Persistent proteinuria VITAMIN D 25 HYDROXY Routine 01/10/2025 8:56 AM EDT Stage 3b chronic kidney disease (HCC) Persistent proteinuria RENAL FUNCTION PANEL Routine 01/10/2025 8:56 AM EDT Stage 3b chronic kidney disease (HCC) Persistent proteinuria PTH, INTACT Routine 01/10/2025 8:56 AM EDT Stage 3b chronic kidney disease (HCC) Persistent proteinuria from Last 3 Months Results * (ABNORMAL) Urinalysis w/reflex Micro and Culture (01/10/2025 9:10 AM EDT) Specific [place] 1.021 1.003 - 1.030 [facility] pH Urine 5.5 5.0 - 8.0 pH [facility] LEUKOCYTES, URINE Negative Negative [facility] Nitrite, Urine Negative Negative [facility] Protein, Urine 30(A) <=Trace mg/dL [facility] Glucose Urine >=1000(A) Negative mg/dL [facility] Ketones, Urine Negative Negative mg/dL [facility] Urobilinogen Urine 0.2 0.2 - 1.0 mg/dL [facility] Bilirubin Urine Negative Negative [facility] Blood Urine Negative Negative [facility] RBC, Urine 0.5 0 - 4 /HPF [facility] WBC, Urine 0.4 0 - 4 /HPF [facility] Squamous Epithelial, Urine 4 0 - 60 /LPF [facility] Bacteria, Urine Negative Negative /HPF [facility] Hyaline Casts, UA 0.0 0 - 3 /LPF [facility] 01/10/2025 9:10 AM EDT 01/10/2025 11:54 AM EDT Enrike Lund MD LAB [id number] SOLICITED RESULTS Final Result Performing Organization Address [facility] Co de Phone Number [facility] [address] [place] [address] * (ABNORMAL) Protein, Total, Random Urine w/Creatinine (Protein/Creat Ratio) (01/10/2025 9:10 AM EDT) Protein, Ur 41 mg/dL [facility] Urine Protein/Creati nine Ratio 0.45(H) <=0.20 mg/mg creat [facility] Creatinine, Urine 91.0 mg/dL [facility] Urine (Urine, Clean Catch) 01/10/2025 9:10 AM EDT 01/10/2025 11:54 AM EDT us Enrike Lund MD LAB URINE ORDERABLES Final Re sult Performing Organization Address [facility]/ZIP Co de Phone Number [facility] [address] [place] [address] * (ABNORMAL) Urine Albumin / Creatinine Ratio (01/10/2025 9:10 AM EDT) Creatinine, Urine 91.0 mg/dL [facility] Microalbumin Urine Random 206.0(H) 0.0 - 29.0 mg/L [facility] Microalbumin/Cre atinine Ratio 226(H) <30 mg/g creat [facility] Urine (Urine, Clean Catch) 01/10/2025 9:10 AM EDT 01/10/2025 11:54 AM EDT Enrike Lund MD LAB URINE ORDERABLES Final Re sult Performing Organization Address [facility]/ZIP Co de Phone Number [facility] [address] [place] [address] * (ABNORMAL) Vitamin D 25 Hydroxy (01/10/2025 8:56 AM EDT) Vitamin D, 25-OH, Total 26.8(L) 30.0 - 80.0 ng/mL [facility] Blood (Blood, Venous) 01/10/2025 8:56 AM EDT 01/10/2025 11:53 AM EDT Enrike Lund MD LAB BLOOD ORDERABLES Final Re sult Performing Organization Address [facility] Co de Phone Number [facility] [address] [place] [address] * CBC (01/10/2025 8:56 AM EDT) WBC 6.0 4.8 - 10.8 K/[facility] RBC 5.40 4.50 - 5.50 M/[facility] Hgb 15.4 13.5 - 17.5 g/dL [facility] Hematocrit 47.3 42.0 - 54.0 % [facility] MCV 87.6 79.0 - 98.0 FL [facility] MCH 28.5 27.0 - 32.0 pcg [facility] MCHC 32.6 32.0 - 37.0 g/dL [facility] RDW 13.2 11.0 - 15.0 % [facility] Platelets 207 130 - 400 K/mcL [facility] MPV 9.6 7.0 - 11.0 FL [facility] nRBC Count 0.0 <1.0 % [facility] NRBC Absolute 0.00 <0.10 K/[facility] Blood (Blood, Venous) 01/10/2025 8:56 AM EDT 01/10/2025 11:52 AM EDT Enrike Lund MD LAB BLOOD ORDERABLES Final Re sult Performing Organization Address City/[facility]/ZIP Co de Phone Number [facility] [address] [place] [address] * PTH, Intact (01/10/2025 8:56 AM EDT) PTH 63.5 18.5 - 88.0 pcg/mL [facility] Blood (Blood, Venous) 01/10/2025 8:56 AM EDT 01/10/2025 11:53 AM EDT Enrike Lund MD LAB BLOOD ORDERABLES Final Re sult [facility] [address] [place] [address] * Magnesium (01/10/2025 8:56 AM EDT) Magnesium 2.0 1.9 - 2.6 mg/dL [facility] Blood (Blood, Venous) 01/10/2025 8:56 AM EDT 01/10/2025 11:53 AM EDT Enrike Lund MD LAB BLOOD ORDERABLES Final Re sult [facility] [address] [place] [address] * (ABNORMAL) Renal Function Panel (01/10/2025 8:56 AM EDT) Sodium 139 133 - 145 mmol/L [facility] Potassium 4.4 3.5 - 5.5 mmol/L [facility] Chloride 106 96 - 110 mmol/L [facility] Bicarbonate (CO2) 27 21 - 32 mmol/L [facility] Anion Gap 6 3 - 11 [facility] Glucose 121(H) 70 - 100 mg/dL [facility] BUN 24 5 - 25 mg/dL [facility] Creatinine Serum 1.68(H) 0.70 - 1.30 mg/dL [facility] eGFR 43(L) >=60 mL/min/1. 73m2 [facility] Comment:Calculation based on the?Chronic Kidney Disease Epidemiology Collaboration (CKD-EPI) equation refit?without adjustment for race. BUN/Creatinine Ratio 14.3 [facility] Albumin 3.9 3.2 - 5.0 g/dL [facility] Calcium 9.1 8.5 - 10.5 mg/dL [facility] Phosphorus 3.0 2.5 - 4.5 mg/dL [facility] Blood (Blood, Venous) 01/10/2025 8:56 AM EDT 01/10/2025 11:53 AM EDT Enrike Lund MD LAB BLOOD ORDERABLES Final Re sult [facility] Organization Address City/State/ZIP Co de Phone Number [facility] [address] [place] [address] from Last 3 Months Insurance Medicare [facility] Care Teams Owner Relationship Specialty Start Date End Date Chilo Sanchez MD PCP - General Internal Medicine 03/28/24
[2025-01-30 21:33] LABS: Thyroid Stimulating Hormone 0.97 uIU/mL (0.32-4.0)
[2025-01-30 21:40] LABS: Vitamin B12 302 pg/mL (200-900)
[2025-01-31 05:31] LABS: Prolactin 7.7 ng/mL (2.0-18.0)
[2025-01-31 06:23] LABS: Lyme Abs Screen <0.90 index
== END 2025-01-30 16:30 | disposition home or self-care (01) ==
LOC: HO.LAB 16:29
PROVIDERS: PCP Internal Medicine; Visit Provider Psychiatry & Neurology Neurology
DX: G31.84 Mild cognitive impairment of uncertain or unknown etiology (principal); D35.2 Benign neoplasm of pituitary gland
CPT/HCPCS: 36415; 82607; 84146; 84443; 86617; 86618; 86780